=== PATIENT | male | born 1970 | race Caucasian/White ===

== ENCOUNTER 2023-11-01 15:39 | Emergency (ER) | payer SELFPAY ==
[2023-11-01] MEDS: Tetracaine HCl/PF 0.5% 4 ML Bottle EYEBOTH ONE (15:45)
[2023-11-01] MEDS: Fluorescein 1 MG Ophth Strip EYERT ONE (15:45)
[2023-11-01] MEDS: Bacitracin/Neomycin/Polymyxin B Ophth Oint 3.5 GM Tube EYERT SCH (16:15)
== END 2023-11-01 16:17 | disposition home or self-care (01) ==
LOC: VM.ED 15:39
DX: S05.01XA Injury of conjunctiva and corneal abrasion without foreign body, right eye, initial encounter (principal); X58.XXXA Exposure to other specified factors, initial encounter
CPT/HCPCS: 99283; 99284; J3490